=== PATIENT | male | born 1975 | race Caucasian/White ===

== ENCOUNTER 2020-05-17 18:38 | Emergency (ER) | payer BC, SELFPAY ==
[2020-05-17 18:49] VITALS: BP 148/94; PULSE 89; RESP 18; TEMP 36.3; O2SAT 97
[2020-05-17] MEDS: TETANUS,DIPHTHERIA,AC PERTUSSIS ADULT (0.5 ML) BOOSTRIX IM (19:47)
--- NOTE | 2020-05-17 20:01 | ED.EXTPRO ---
HPI - Extremity Problem General Chief complaint: Extremity Injury, Upper Stated complaint: finger laceration Time Seen by Provider: 05/17/20 18:47 Source: patient Mode of arrival: ambulatory Limitations: no limitations History of Present Illness HPI Narrative: Patient is a 44-year-old male who presents to emergency department for evaluation of laceration to the distal left ring finger cut it on a razor blade patient notes his tetanus is not up-to-date patient denies. Patient is unsure as to tetanus as noted patient notes mild pain patient denies other injuries or complaints injury occurred just prior to arrival Related Data Allergies Allergy/AdvReac Type Severity Reaction Status Date / Time No Known Allergies Allergy Unverified 12/20/14 14:06 Review of Systems Review of Systems: All systems reviewed & are unremarkable except as noted in HPI and below PMFSH Social History Social History (Updated 05/17/20 @ 20:02 by Doug Zuniga PA-C) Smoking status: Never smoker Gender identity (if verbalized by the patient): Male Exam Narrative: Exam Narrative: GENERAL: Well-appearing, well-nourished, and in no acute distress. HEAD: Normocephalic, atraumatic. EYES: PERRLA and EOMI. ENT: Nares clear, no rhinorrhea or epistaxis. Mucous membranes moist. EXTREMITIES: Normal range of motion. No edema. SKIN: Warm, dry, no rash. 1 cm linear laceration distal tip of the left ring finger NEURO: No focal deficits. Alert and oriented x3. Neurovascularly intact PSYCH: Normal mood and affect. Course Course Emergency Course: Patient in the room in no distress aware of case findings treatment plan and diagnosis Vital Signs Vital signs: Vital Signs Temperature 97.4 F L 05/17/20 18:49 Pulse Rate 89 05/17/20 18:49 Respiratory Rate 18 05/17/20 18:49 Blood Pressure 148/94 H 05/17/20 18:49 Pulse Oximetry 97 05/17/20 18:49 Temperature 97.4 F L 05/17/20 18:49 Pulse Rate 89 05/17/20 18:49 Respiratory Rate 18 05/17/20 18:49 Blood Pressure 148/94 H 05/17/20 18:49 Pulse Oximetry 97 05/17/20 18:49 Procedures Laceration Laceration 1: Date: 05/17/20 Time: 20:03 Site: upper extremity Side (If applicable): left Size (cm): 1.5 Description: linear Depth: simple, single layer Local Anesthetic: other anesthetic Pre-repair: wound explored, irrigated and irrigated extensively ====== Skin Level ====== Skin layer closed with: sarah Number of sutures: 2 ====== Subcutaneous Layer ====== ====== Muscle Layer ====== ====== Tendon Layer ====== Dressing: Antibiotic ointment nonadhesive 4 x [address] post procedure MDM - Extremity (Nontraumatic) MDM Narrative Medical decision making narrative: Patients injury or pain is consistent with musculoskeletal etiology. No signs of neurological or vascular compromise on exam. Patient's wound was closed in the emergency department tetanus was updated Discharge Plan Discharge Clinical Impression: Finger laceration Patient Disposition: Home, Self-Care Condition: Stable Instructions: Antibiotic Form, Laceration (ED) Additional Instructions: Keep wound clean and dry. Do not soak, take baths, or swim until wound is completely healed. If any signs of infection such as redness, swelling, increasing pain, drainage of purulent discharge, streaks up your extremity develop, seek medical attention immediately. Followup with your primary care provider in [7] days for suture removal. [] Follow-up/Referrals: Jillian Martinez MD [Primary Care Provider] -
[2020-05-17 20:38] VITALS: BP 132/86; PULSE 90; RESP 18; O2SAT 96
== END 2020-05-17 20:40 | disposition home or self-care (01) ==
PROVIDERS: Emergency Provider Emergency Medicine; PCP Hospitalist
DX: S61.215A Laceration without foreign body of left ring finger without damage to nail, initial encounter (principal); W26.8XXA Contact with other sharp object(s), not elsewhere classified, initial encounter; Z23 Encounter for immunization
CPT/HCPCS: 12001; 90471; 90715; 99282

== ENCOUNTER → 2020-11-29 12:21 | Outpatient (CLI) | payer BC, SELFPAY ==
--- NOTE | ~2020-11-29 | XR_ITS ---
EXAMINATION: XR shoulder LT min 2V INDICATION: Left shoulder pain TECHNIQUE: Four views of the left shoulder are submitted. COMPARISON: 12/08/2014 FINDINGS: Normal alignment. No fracture. Glenohumeral and acromioclavicular joint spaces are normal. Soft tissues are unremarkable. IMPRESSION: 1. No acute osseous abnormality. Reviewed, dictated and finalized at location A. [employer]
== END ==
PROVIDERS: PCP Family Medicine; Visit Provider Physician Assistant
DX: M25.512 Pain in left shoulder (principal)
CPT/HCPCS: 73030

== ENCOUNTER 2022-07-30 14:01 | Emergency (ER) | payer BC, SELFPAY ==
--- NOTE | ~2022-07-30 | XR_ITS ---
EXAM: XR ankle LT min 3V DATE: 07/30/2022 15:45 HISTORY: fall and twisted ankle. lateral pain and swelling . COMPARISON: None available. FINDINGS: Suboptimal lateral views. Normal mineralization. No fracture or dislocation. No lytic or b lastic lesion. Joint spaces are maintained. No erosion or periosteal change. Lateral ankle soft tissu e swelling. IMPRESSION: No acute osseous finding in the left ankle. Reviewed, dictated and finalized at location K. [employer]
[2022-07-30 14:45] VITALS: BP 147/90; PULSE 119; RESP 14; TEMP 36.9; O2SAT 99
--- NOTE | 2022-07-30 17:01 | ED.LOWEXIN ---
HPI - Extremity Injury (Lower) General Chief Complaint: Extremity Injury, Lower Stated Complaint: left ankle inury with pain and swelling Time Seen by Provider: 07/30/22 16:37 History of Present Illness HPI Narrative: 46-year-old male presents to the emergency room for evaluation of a left ankle injury. Patient states while at work he jumped off of a curb and twisted his left ankle. Patient states the injury occurred at 7:00 this morning. Ankle pain is worse when he attempts to ambulate. Related Data Allergies Allergy/AdvReac Type Severity Reaction Status Date / Time No Known Allergies Allergy Unverified 07/30/22 14:01 Review of Systems Review of Systems: CONSTITUTIONAL: Denies fever, chills, or sweats. EYES: Denies visual changes, redness, or discharge. ENT: Denies rhinorrhea, congestion, sore throat, or otalgia. CARDIOVASCULAR: Denies chest pain, palpitations, or edema. RESPIRATORY: Denies cough or dyspnea. GASTROINTESTINAL: Denies abdominal pain, nausea, vomiting, or diarrhea. GENITOURINARY: Denies dysuria or hematuria. SKIN: Denies rash or itching. MUSCULOSKELETAL: reports left ankle pain NEUROLOGIC: Denies headache, numbness, dizziness, or weakness. PSYCHIATRIC: Denies anxiety or depression. [facility] Social History Social History Smoking status: Never smoker Gender identity (if verbalized by the patient): Male Exam Narrative: GENERAL: Well-appearing, well-nourished, no physical limitations, and in no acute distress. HEAD: Normocephalic, atraumatic. EYES: Conjunctivae normal, PERRLA and EOMI. CHEST: Clear to auscultation. No respiratory distress. No wheezes rales or rhonchi. No tenderness. HEART: Regular rate and rhythm. No murmur heard. Normal peripheral pulses. EXTREMITIES: left ankle: +TTP to lateral malleolus with diffuse STS; No joint laxity, LROM d/t pain, neurovascular is intact distally SKIN: Warm, dry, no rash. No noted wounds NEURO: No focal deficits. Alert and oriented x3. MAEW. CN's II-XI intact bilaterally, antalgic gait PSYCH: Cooperative. Normal mood and affect. Course Vital Signs Vital signs: Vital Signs Temperature 36.9 C 07/30/22 14:45 Pulse Rate 119 H 07/30/22 14:45 Respiratory Rate 14 07/30/22 14:45 Blood Pressure 147/90 H 07/30/22 14:45 Pulse Oximetry 99 07/30/22 14:45 Oxygen Delivery Room Air 07/30/22 14:45 Temperature 36.9 C 07/30/22 14:45 Pulse Rate 119 H 07/30/22 14:45 Respiratory Rate 14 07/30/22 14:45 Blood Pressure 147/90 H 07/30/22 14:45 Pulse Oximetry 99 07/30/22 14:45 Oxygen Delivery Room Air 07/30/22 14:45 Discharge Plan Discharge Clinical Impression: Left ankle sprain Patient Disposition: Home, Self-Care Condition: Stable Instructions: Antibiotic Form Additional Instructions: Recommend going to [facility] pharmacy and obtaining a tall Velcro walking boot. Wear the boot at and use crutches for the next week. If you continue to have a significant amount of pain, recommend following up with Dr. Em, orthopedist. Prescriptions: New naproxen 500 mg tablet 500 mg PO BID Qty: 30 0RF Follow-up/Referrals: Tyrel Carpenter MD [Primary Care Provider] - Darian Em MD [Physician] - Time of Disposition: 17:00
== END 2022-07-30 17:11 | disposition home or self-care (01) ==
LOC: ANHED 17:03
PROVIDERS: Emergency Provider Nurse Practitioner Family; PCP Family Medicine
DX: S93.402A Sprain of unspecified ligament of left ankle, initial encounter (principal); X50.0XXA Overexertion from strenuous movement or load, initial encounter
CPT/HCPCS: 73610; 99283